=== PATIENT | female | born 1965 | race Hispanic/Latino ===

== ENCOUNTER 2018-02-22 18:12 | Emergency (ER) | payer OTHER ==
[2018-02-22] MEDS ORDERED: SODIUM CHLORIDE 0.9% 1000ML 1,000 ML IV ONE (18:57)
[2018-02-22 18:59] LABS: BASOPHILS % (AUTO) 0.5 % (0.0-5.0); EOSINOPHILS % (AUTO) 3.3 % (0.0-8.0); HEMATOCRIT 36.7 % (36-48); LYMPHOCYTES % (AUTO) 7.5 % (21.0-51.0); MEAN CORPUSCULAR HEMOGLOBIN 31.8 pg (27.0-33.0); MEAN CORPUSCULAR HGB CONC 36.7 g/dL (32.0-36.0); MEAN CORPUSCULAR VOLUME 86.6 fL (79-99); MONOCYTES % (AUTO) 5.6 % (3.0-13.0); NEUTROPHILS % (AUTO) 83.1 % (40.0-77.0); PLATELET COUNT (AUTO) 366 K/uL (130-400); RED BLOOD CELL COUNT(AUTO) 4.24 MIL/uL (4.00-5.50); WHITE BLOOD COUNT (AUTO) 9.4 K/uL (4.8-10.8)
[2018-02-22] MEDS ORDERED: ACETAMINOPHEN EXTRA STRENGTH 500 MG TABLET ONE (19:13)
[2018-02-22 19:18] LABS: ALBUMIN 3.2 g/dL (3.5-5.0); BILIRUBIN,TOTAL 0.6 mg/dL (0.2-1.0); CREATININE 0.6 mg/dL (0.5-1.5); POTASSIUM 3.8 mmol/L (3.5-5.1)
[2018-02-22] MEDS ORDERED: DiphenhydrAMINE HCL 50 MG/ML VIAL ONE (19:20)
[2018-02-22] MEDS ORDERED: ONDANSETRON HCL MDV 20ML 2 MG/ML VIAL ONE (19:22)
[2018-02-22 19:41] LABS: APPEARANCE,URINE Clear (CLEAR); BILIRUBIN,URINE Negative (NEGATIVE); COLOR,URINE Yellow (YELLOW); GLUCOSE, URINE (UA) >=1000 mg/dL (NEGATIVE); KETONES,URINE 40 mg/dL (NEGATIVE); LEUKOCYTE ESTERASE ,URINE Negative (NEGATIVE); NITRATE,URINE Negative (NEGATIVE); OCCULT BLOOD,URINE Negative (NEGATIVE); PROTEIN,URINE Negative (NEGATIVE)
[2018-02-22 19:48] LABS: BACTERIA,URINE Many /HPF (None Seen); RBC,URINE None Seen /HPF (0-1); SQUAMOUS EPITHELIAL CELL,UR 0-2 /HPF (0-2); WBC,URINE None Seen /HPF (0-1)
[2018-02-22] MEDS ORDERED: INSULIN HUMULIN R 100 UNIT/ML 3ML ONE (19:48)
[2018-02-22] MEDS ORDERED: CEFTRIAXONE SODIUM 1 GM ONE (21:29)
[2018-02-26] MEDS ORDERED: METF10004 PO (11:23)
[2018-02-26] MEDS ORDERED: IBUP-2077 PO (11:23)
[2018-02-26] MEDS ORDERED: INSU100C6 SQ (11:23)
[2018-02-26] MEDS ORDERED: INSU100V12 SQ (11:23)
[2018-02-28] MEDS ORDERED: LEVO500T89 PO (16:41)
== END 2018-02-22 22:18 | disposition home or self-care (01) ==
LOC: EDH 18:12
DX: N10 Acute pyelonephritis (principal); E78.5 Hyperlipidemia, unspecified; I10 Essential (primary) hypertension; E11.9 Type 2 diabetes mellitus without complications; M19.90 Unspecified osteoarthritis, unspecified site; Z98.890 Other specified postprocedural states
CPT/HCPCS: 36415; 71046; 74176; 80053; 81001; 82550; 82948; 83605; 83880; 84484; 85025; 87040; 87186; 93005; 96374; 96375; 99285; J0696; J1200; J1815; J7030

== ENCOUNTER 2018-03-15 13:36 | Emergency (ER) | payer OTHER ==
[~2018-03-15 13:36] MED LIST: IBUP-2077 PO; INSU100C6 SQ; INSU100V12 SQ; LEVO500T89 PO; METF10004 PO
[2018-03-15] MEDS ORDERED: SODIUM CHLORIDE 0.9% 1000ML 1,000 ML IV ONE (14:05)
[2018-03-15 14:42] LABS: BASOPHILS % (AUTO) 0.6 % (0.0-5.0); EOSINOPHILS % (AUTO) 3.9 % (0.0-8.0); HEMATOCRIT 39.7 % (36-48); LYMPHOCYTES % (AUTO) 11.1 % (21.0-51.0); MEAN CORPUSCULAR HEMOGLOBIN 30.7 pg (27.0-33.0); MEAN CORPUSCULAR HGB CONC 35.3 g/dL (32.0-36.0); MONOCYTES % (AUTO) 3.9 % (3.0-13.0); NEUTROPHILS % (AUTO) 80.5 % (40.0-77.0); PLATELET COUNT (AUTO) 289 K/uL (130-400); RED BLOOD CELL COUNT(AUTO) 4.56 MIL/uL (4.00-5.50); RED CELL DISTRIBUTION WIDTH 13.1 % (11.0-15.5); WHITE BLOOD COUNT (AUTO) 10.9 K/uL (4.8-10.8)
[2018-03-15 14:47] LABS: INR 0.92 (0.85-1.15); PROTHROMBIN TIME 9.7 SEC (9.6-11.6)
[2018-03-15 14:54] LABS: CARBON DIOXIDE 28 mmol/L (21-32); CHLORIDE 99 mmol/L (101-111); CREATININE 0.6 mg/dL (0.5-1.5); GLOMERULAR FILTR. RATE CALC 112 mL/min (>60); GLUCOSE,RANDOM 331 mg/dL (70-105); POTASSIUM 3.9 mmol/L (3.5-5.1); SODIUM SERUM 135 mmol/L (136-145); UREA NITROGEN, BLOOD 14 mg/dL (7-18)
[2018-03-15] MEDS ORDERED: CEFTRIAXONE SODIUM 2 GM VIAL ONE (14:56)
[2018-03-15 15:04] LABS: ALANINE AMINOTRANSFERASE 23 U/L (12-78); ALBUMIN 3.6 g/dL (3.5-5.0); ASPARTATE AMINOTRANSFERASE 15 U/L (10-37); BILIRUBIN,TOTAL 0.8 mg/dL (0.2-1.0); CREATINE KINASE MB 0.6 ng/mL (0.5-3.6); CREATINE KINASE, TOTAL 42 U/L (21-232); MYOGLOBIN 15 ng/mL (10-92); TOTAL PROTEIN, SERUM 6.9 g/dL (6.0-8.3); TROPONIN I < 0.04 ng/mL (0.00-0.06)
[2018-03-15 15:08] LABS: BILIRUBIN,URINE Negative (NEGATIVE); COLOR,URINE Dark Yellow (YELLOW); GLUCOSE, URINE (UA) >=1000 mg/dL (NEGATIVE); KETONES,URINE Trace mg/dL (NEGATIVE); LEUKOCYTE ESTERASE ,URINE Negative (NEGATIVE); NITRATE,URINE Negative (NEGATIVE); OCCULT BLOOD,URINE Negative (NEGATIVE); PROTEIN,URINE Trace (NEGATIVE)
[2018-03-15 15:11] LABS: APPEARANCE,URINE SLIGHTLY CLOUDY (CLEAR)
[2018-03-15 15:27] LABS: BACTERIA,URINE Few /HPF (None Seen); RBC,URINE 0-1 /HPF (0-1); SQUAMOUS EPITHELIAL CELL,UR Few /HPF (0-2)
== END 2018-03-15 16:51 | disposition home or self-care (01) ==
LOC: EDH 13:36
DX: R53.1 Weakness (principal); E11.9 Type 2 diabetes mellitus without complications; R79.1 Abnormal coagulation profile
CPT/HCPCS: 36415; 71045; 80053; 81001; 82550; 82553; 83605 ×2; 83874; 84484; 85025; 85610; 85730; 87040 ×2; 87088; 87186; 93005; 96374; 99285; J0696; J7030

== ENCOUNTER 2019-03-15 01:45 | Emergency (ER) | payer OTHER ==
[~2019-03-15 01:45] MED LIST changes: +METF-446 PO; -METF10004 PO
[2019-03-15 02:21] LABS: BASOPHILS % (AUTO) 0.9 % (0.0-5.0); EOSINOPHILS % (AUTO) 4.9 % (0.0-8.0); HEMATOCRIT 41.3 % (36-48); LYMPHOCYTES % (AUTO) 34.8 % (21.0-51.0); MEAN CORPUSCULAR HEMOGLOBIN 30.9 pg (27.0-33.0); MEAN CORPUSCULAR HGB CONC 35.1 g/dL (32.0-36.0); MEAN CORPUSCULAR VOLUME 88.1 fL (79-99); MONOCYTES % (AUTO) 8.8 % (3.0-13.0); NEUTROPHILS % (AUTO) 50.6 % (40.0-77.0); NUCLEATED RED BLOOD CELLS 0.1 % (0.0-0.19); PLATELET COUNT (AUTO) 264 K/uL (130-400); RED BLOOD CELL COUNT(AUTO) 4.69 MIL/uL (4.00-5.50); RED CELL DISTRIBUTION WIDTH 12.9 % (11.0-15.5); WHITE BLOOD COUNT (AUTO) 7.5 K/uL (4.8-10.8)
[2019-03-15 02:22] LABS: APPEARANCE,URINE Clear (CLEAR); BILIRUBIN,URINE Negative (NEGATIVE); COLOR,URINE Yellow (YELLOW); GLUCOSE, URINE (UA) 500 mg/dL (NEGATIVE); KETONES,URINE Negative (NEGATIVE); LEUKOCYTE ESTERASE ,URINE Negative (NEGATIVE); NITRATE,URINE Negative (NEGATIVE); OCCULT BLOOD,URINE Negative (NEGATIVE); PROTEIN,URINE POS 2+ mg/dL (NEGATIVE)
[2019-03-15 02:27] LABS: RAPID GROUP A STREP NEGATIVE (NEGATIVE)
[2019-03-15 02:29] LABS: CREATININE 0.8 mg/dL (0.5-1.5); POTASSIUM 3.9 mmol/L (3.5-5.1)
[2019-03-15 02:33] LABS: INR 0.94 (0.85-1.15); PARTIAL THROMBOPLASTIN TIME 25.2 SEC (26.3-35.5); PROTHROMBIN TIME 9.9 SEC (9.6-11.6)
[2019-03-15 02:35] LABS: ALBUMIN 4.2 g/dL (3.5-5.0); BILIRUBIN,TOTAL 0.5 mg/dL (0.2-1.0); TOTAL PROTEIN, SERUM 8.1 g/dL (6.0-8.3)
[2019-03-15 02:41] LABS: BACTERIA,URINE None Seen /HPF (None Seen); MUCUS,URINE Rare LPF (None Seen); RBC,URINE None Seen /HPF (0-1); SQUAMOUS EPITHELIAL CELL,UR Few /HPF (0-2); WBC,URINE None Seen /HPF (0-1); YEAST,URINE BUDDING None Seen /HPF (None Seen)
[2019-03-15] MEDS ORDERED: SODIUM CHLORIDE 0.9% 1000ML 1,000 ML IV ONE (03:05)
== END 2019-03-15 04:22 | disposition home or self-care (01) ==
LOC: EDH 01:45
DX: E11.65 Type 2 diabetes mellitus with hyperglycemia (principal); R10.84 Generalized abdominal pain; J02.9 Acute pharyngitis, unspecified; I10 Essential (primary) hypertension; E78.5 Hyperlipidemia, unspecified; E11.9 Type 2 diabetes mellitus without complications; M19.90 Unspecified osteoarthritis, unspecified site
CPT/HCPCS: 36415; 71045; 74176; 80053; 81001; 82150; 82550; 84484; 85025; 85610; 85730; 87804 ×2; 87880; 93005; 96360; 99285; J7030

== ENCOUNTER 2021-02-17 18:29 | Emergency (ER) | payer MEDICAID, OTHER ==
[2021-02-17] MEDS ORDERED: MAG HYDROX/AL HYDROX/SIMETH ES 30 ML SUSP UDCUP ONE (18:49)
[2021-02-17] MEDS ORDERED: LIDOCAINE HCL 2% VISCOUS 15 ML UDCUP ONE (18:49)
[2021-02-17 18:50] LABS: APPEARANCE,URINE Cloudy (CLEAR); BILIRUBIN,URINE Negative (NEGATIVE); COLOR,URINE Yellow (YELLOW); GLUCOSE, URINE (UA) >=1000 mg/dL (NEGATIVE); KETONES,URINE >=80 mg/dL (NEGATIVE); LEUKOCYTE ESTERASE ,URINE Small (NEGATIVE); NITRATE,URINE Negative (NEGATIVE); OCCULT BLOOD,URINE Negative (NEGATIVE); PROTEIN,URINE POS 2+ mg/dL (NEGATIVE)
[2021-02-17] MEDS ORDERED: FAMOTIDINE 20MG TAB 20 MG TAB ONE (18:50)
[2021-02-17 19:06] LABS: RBC,URINE 0-1 /HPF (0-1)
[2021-02-17 19:07] LABS: BACTERIA,URINE Few /HPF (None Seen); SQUAMOUS EPITHELIAL CELL,UR Few /HPF (0-2)
[2021-02-17] MEDS ORDERED: INSULIN HUMULIN R 100 UNIT/ML 3ML ONE (19:38)
[2021-02-17] MEDS ORDERED: CEFTRIAXONE SODIUM 1 GM ONE (19:38)
[2021-02-17] MEDS ORDERED: SODIUM CHLORIDE 0.9% 1000ML 1,000 ML IV ONE ×2 (19:39→20:36)
[2021-02-17 19:40] LABS: BASOPHILS % (AUTO) 0.5 % (0.0-5.0); HEMATOCRIT 39.4 % (36-48); LYMPHOCYTES % (AUTO) 34.4 % (21.0-51.0); MEAN CORPUSCULAR HEMOGLOBIN 29.8 pg (27.0-33.0); MEAN CORPUSCULAR HGB CONC 34.3 g/dL (32.0-36.0); MONOCYTES % (AUTO) 4.9 % (3.0-13.0); NEUTROPHILS % (AUTO) 52.9 % (40.0-77.0); PLATELET COUNT (AUTO) 236 K/uL (130-400); RED BLOOD CELL COUNT(AUTO) 4.53 MIL/uL (4.00-5.50); RED CELL DISTRIBUTION WIDTH 12.2 % (11.0-15.5); WHITE BLOOD COUNT (AUTO) 6.1 K/uL (4.8-10.8)
[2021-02-17] MEDS ORDERED: SODIUM CHLORIDE 0.9% 100 ML IV ONE (19:40)
[2021-02-17 19:49] LABS: CREATININE 0.8 mg/dL (0.5-1.5); POTASSIUM 3.6 mmol/L (3.5-5.1)
[2021-02-17 19:57] LABS: ALBUMIN 3.6 g/dL (3.5-5.0); BILIRUBIN,TOTAL 0.3 mg/dL (0.2-1.0); TOTAL PROTEIN, SERUM 7.7 g/dL (6.0-8.3)
[2021-02-17 20:15] LABS: ABG BASE EXCESS -3.3 mmol/L (-2.0-3.0); ABG HCO3 20.2 mmol/L (21.0-28.0); ABG OXYGEN SATURATION 97.2 % (95.0-99.0); ABG PCO2 32 mmHg (32-45)
== END 2021-02-17 21:43 | disposition home or self-care (01) ==
LOC: EDH 18:29
DX: K29.00 Acute gastritis without bleeding (principal); N30.00 Acute cystitis without hematuria; E11.65 Type 2 diabetes mellitus with hyperglycemia; I10 Essential (primary) hypertension; E78.5 Hyperlipidemia, unspecified; M19.90 Unspecified osteoarthritis, unspecified site; Z88.8 Allergy status to other drugs, medicaments and biological substances; F32.9 Major depressive disorder, single episode, unspecified
CPT/HCPCS: 36415; 36600; 71045; 76705; 80053; 81001; 82010; 82803; 82948 ×2; 83690; 84484; 85025; 87088; 93005; 96365; 96366; 96375; 99285; J0696; J1815; J7030 ×2

== ENCOUNTER 2021-09-14 22:08 | Emergency (ER) | payer MEDICAID, OTHER ==
[~2021-09-14 22:08] MED LIST changes: +DEXAMETHASONE 4 MG TAB PO ONE; -LEVO500T89 PO; +LEVO500T90 PO
[2021-09-14] MEDS ORDERED: MELO7.5T12 PO (23:56)
[2021-09-14] MEDS ORDERED: AZIT250T9 PO (23:56)
[2021-09-14] MEDS ORDERED: BENZ-39 PO (23:56)
[2021-09-14] MEDS ORDERED: ALBU8.5H8 IH (23:56)
[2021-09-15] MEDS ORDERED: AZITHROMYCIN 250 MG TABLET PO ONE
[2021-09-15] MEDS ORDERED: BENZONATATE 100 MG CAPSULE PO ONE
[2021-09-15] MEDS ORDERED: GUAIFENESIN-CODEINE 5 ML SYRUP PO ONE
[2021-09-15] MEDS ORDERED: DEXAMETHASONE 4 MG TAB ONE (00:11)
[2021-09-15 00:14] VITALS: BP 132/92
== END 2021-09-15 00:16 | disposition home or self-care (01) ==
LOC: EDH 22:08
DX: U07.1 COVID-19 (principal); J40 Bronchitis, not specified as acute or chronic; I10 Essential (primary) hypertension; Z79.1 Long term (current) use of non-steroidal anti-inflammatories (NSAID); Z79.52 Long term (current) use of systemic steroids; Z79.899 Other long term (current) drug therapy
CPT/HCPCS: 87635; 87804 ×2; 87880; 99284; C9803; J8540

== ENCOUNTER → 2022-06-28 | Outpatient (CLI) | payer MEDICAID ==
[~2022-06-28] MED LIST changes: +ALBU8.5H8 IH; +AZIT250T9 PO; +BENZ-39 PO; -DEXAMETHASONE 4 MG TAB PO ONE; +LEVO-70 PO; -LEVO500T90 PO; +MELO7.5T12 PO
[2022-06-28 11:24] LABS: BASOPHILS % (AUTO) 1.1 % (0.0-5.0); EOSINOPHILS % (AUTO) 9.6 % (0.0-8.0); HEMATOCRIT 41.2 % (36-48); LYMPHOCYTES % (AUTO) 28.1 % (21.0-51.0); MEAN CORPUSCULAR HEMOGLOBIN 30.6 pg (27.0-33.0); MEAN CORPUSCULAR VOLUME 90.2 fL (79-99); MONOCYTES % (AUTO) 7.2 % (3.0-13.0); NEUTROPHILS % (AUTO) 53.4 % (40.0-77.0); PLATELET COUNT (AUTO) 231 K/uL (130-400); RED BLOOD CELL COUNT(AUTO) 4.57 MIL/uL (4.00-5.50); RED CELL DISTRIBUTION WIDTH 11.8 % (11.0-15.5); WHITE BLOOD COUNT (AUTO) 4.7 K/uL (4.8-10.8)
[2022-06-28 11:32] LABS: ALBUMIN 3.8 g/dL (3.5-5.0); CREATININE 0.6 mg/dL (0.5-1.5); POTASSIUM 4.3 mmol/L (3.5-5.1); TOTAL PROTEIN, SERUM 7.8 g/dL (6.0-8.3)
== END | disposition home or self-care (01) ==
LOC: LAB 06-27 12:44
PROVIDERS: ATTEND Internal Medicine Gastroenterology
DX: R19.7 Diarrhea, unspecified (principal)
CPT/HCPCS: 36415; 80053; 82656; 83516; 83993; 85025; 87046; 87177; 87507

== ENCOUNTER → 2022-07-05 | Outpatient (CLI) | payer MEDICAID | END | disposition home or self-care (01) | LOC: RAH 07:13 | PROVIDERS: ATTEND Internal Medicine Gastroenterology | DX: R11.2 Nausea with vomiting, unspecified (principal); R14.0 Abdominal distension (gaseous) | CPT/HCPCS: 78264; A9541 ==

== ENCOUNTER 2023-03-03 11:31 | Emergency (ER) | payer MEDICAID, OTHER ==
[~2023-03-03] VITALS: Ht 152.4 cm; Wt 77.1 kg
[2023-03-03 12:26] LABS: BASOPHILS % (AUTO) 0.8 % (0.0-5.0); EOSINOPHILS % (AUTO) 5.1 % (0.0-8.0); HEMATOCRIT 44.8 % (36-48); LYMPHOCYTES % (AUTO) 26.6 % (21.0-51.0); MEAN CORPUSCULAR HEMOGLOBIN 31.2 pg (27.0-33.0); MEAN CORPUSCULAR VOLUME 88.9 fL (79-99); MONOCYTES % (AUTO) 6.5 % (3.0-13.0); NEUTROPHILS % (AUTO) 60.6 % (40.0-77.0); PLATELET COUNT (AUTO) 249 K/uL (130-400); RED BLOOD CELL COUNT(AUTO) 5.04 MIL/uL (4.00-5.50); RED CELL DISTRIBUTION WIDTH 11.7 % (11.0-15.5); WHITE BLOOD COUNT (AUTO) 7.9 K/uL (4.8-10.8)
[2023-03-03 12:39] LABS: ALBUMIN 4.7 g/dL (3.5-5.0); CREATININE 0.7 mg/dL (0.5-1.5); TOTAL PROTEIN, SERUM 8.6 g/dL (6.0-8.3)
[2023-03-03 12:41] LABS: POTASSIUM 2.9 mmol/L (3.5-5.1)
[2023-03-03] MEDS ORDERED: ONDANSETRON 4MG INJ IVP ONE (13:00)
[2023-03-03] MEDS ORDERED: 0.9%NACL 1000ML 1,000 ML IV ONE (13:00)
[2023-03-03] MEDS ORDERED: MORPHINE 2 MG SYG IVP ONE (13:00)
[2023-03-03] MEDS ORDERED: POTASSIUM BICARB/CIT AC 25 MEQ TABLET.EFF PO ONE (14:00)
[2023-03-03] MEDS ORDERED: SULF1TAB42 PO (14:23)
[2023-03-03] MEDS ORDERED: ONDA4TAB10 PO (14:26)
[2023-03-03 14:36] VITALS: BP 126/72
== END 2023-03-03 14:49 | disposition home or self-care (01) ==
LOC: EDH 11:31
DX: L03.311 Cellulitis of abdominal wall (principal); E87.6 Hypokalemia; I10 Essential (primary) hypertension; E11.9 Type 2 diabetes mellitus without complications; E78.00 Pure hypercholesterolemia, unspecified; Z79.84 Long term (current) use of oral hypoglycemic drugs; Z79.899 Other long term (current) drug therapy; Z98.890 Other specified postprocedural states
CPT/HCPCS: 99285; 70450; 96374; 96375; 84484; 80053; 85025; 36415; 74176; 93005; J2270; J7030; J2405

== ENCOUNTER 2023-10-10 08:07 | Day surgery (SDC) | payer MEDICAID ==
[~2023-10-10] VITALS: Ht 157.5 cm; Wt 84.0 kg
[~2023-10-10 08:07] MED LIST changes: +AEC81 PO; -ALBU8.5H8 IH; +ATOR40TA69 PO; -AZIT250T9 PO; -BENZ-39 PO; +FAMO20TA8 PO; -IBUP-2077 PO; -INSU100C6 SQ; +INSU100V3 SQ; +INSU500I SQ; -LEVO-70 PO; +LISI20TA24 PO; -MELO7.5T12 PO; -METF-446 PO; +METO5SOL2 PO; +MUPI15CR12 TP; +OMEP40CA21 PO; +PIOG30TA70 PO; +PREMC VG; +SEMA0.258 SQ
[2023-10-10] MEDS ORDERED: 0.9%NACL 1000ML 1,000 ML IV ONE (08:30)
[2023-10-10 08:40] VITALS: BP 145/77; PULSE 83; RESP 15
[2023-10-10] MEDS ORDERED: PROPOFOL 10 MG/ML 20ML VIAL IV ONE (11:38)
[2023-10-10 12:30] VITALS: BP 144/84; PULSE 82; RESP 16
[2023-10-10 12:45] VITALS: BP 162/88; PULSE 84; RESP 16
[2023-10-10 13:00] VITALS: BP 138/76; PULSE 79; RESP 16
== END 2023-10-10 13:20 | disposition home or self-care (01) ==
LOC: ENDO 08:07 → DAH 08:07 → ENDO 13:20
PROVIDERS: ATTEND Internal Medicine Gastroenterology
DX: R10.13 Epigastric pain (principal); R11.2 Nausea with vomiting, unspecified; K29.50 Unspecified chronic gastritis without bleeding; R19.4 Change in bowel habit; R15.9 Full incontinence of feces; R94.5 Abnormal results of liver function studies; M54.9 Dorsalgia, unspecified; I10 Essential (primary) hypertension; E66.9 Obesity, unspecified; E11.9 Type 2 diabetes mellitus without complications; Z68.33 Body mass index [BMI] 33.0-33.9, adult
CPT/HCPCS: 81025; 82948 ×2; 43239; J7030 ×2; J3490; A4620; A4215 ×2; A4223; A7002; A4222; A4221; A4663; A4606; J2704

== ENCOUNTER → 2025-01-01 | Outpatient (CLI) | payer MEDICAID ==
[~2025-01-01] MED LIST changes: -METO5SOL2 PO; -SEMA0.258 SQ
--- NOTE | 2025-01-01 11:45 | NUR ---
MBSS COMPLETED. No aspirations/ no penetrations. Recommend regular solids, thin liquids and pills whole with liquids as tolerated. Pt noted with belching and coughing after every trial not indicating aspirations/penetrations. Recommend GI consult to further evaluate esophageal function. Compensatory strategies: 1. sit upright during oral intake 2. extra dry swallows FACILITY ASSISTANT reviewed results and recommendations with patient. FACILITY ASSISTANT educated patient on risks and consequences of aspiration. Speech therapy not warranted at this time. All questions answered. Addendum: 01/02/[address] [place] Amended: Links added.
--- NOTE | 2025-01-01 15:51 | HMCIMG ---
MODIFIED BARIUM SWALLOW W CINE REASON: DYSPHAGIA. COMPARISON: None TECHNIQUE: Modified barium swallow study was performed with referring speech therapist. FINDINGS: Please see procedure report with the referring speech therapist. IMPRESSION: Intraoperative films.
== END | disposition home or self-care (01) ==
LOC: RAH 10:52
PROVIDERS: ATTEND Internal Medicine
DX: R13.10 Dysphagia, unspecified (principal); R05.9 Cough, unspecified
CPT/HCPCS: 74230; 92611